=== PATIENT | female | born 1985 | race Caucasian/White ===

== ENCOUNTER 2019-06-29 13:06 | Emergency (ER) | payer OTHER ==
[~2019-06-29] VITALS: Ht 160 cm; Wt 107.2 kg
[2019-06-29 13:06] VITALS: BP 144/88
[2019-06-29] MEDS ORDERED: IBUP-1022 PO (13:15)
[2019-06-29] MEDS ORDERED: TRAM50TA2 PO (13:39)
[2019-06-29] MEDS ORDERED: CLEO300C2 PO (13:39)
== END 2019-06-29 13:52 | disposition home or self-care (01) ==
LOC: M ED 13:06
DX: K08.89 Other specified disorders of teeth and supporting structures (principal); R13.10 Dysphagia, unspecified; Z88.0 Allergy status to penicillin; Z88.8 Allergy status to other drugs, medicaments and biological substances; Z91.048 Other nonmedicinal substance allergy status; F17.210 Nicotine dependence, cigarettes, uncomplicated

== ENCOUNTER 2019-07-28 18:06 | Emergency (ER) | payer OTHER ==
[~2019-07-28] VITALS: Ht 160 cm; Wt 109.7 kg
[~2019-07-28 18:06] MED LIST: CLEO300C2 PO; IBUP-1022 PO; TRAM50TA2 PO
[2019-07-28 19:51] VITALS: BP 147/93
[2019-07-28] MEDS ORDERED: CLEO300C2 PO (19:52)
[2019-07-28] MEDS ORDERED: NORC1TAB7 PO (19:52)
[2019-07-28] MEDS ORDERED: NORCO, ANEXSIA 5/325MG TABLET (HYDROcodone/ACETAMINOPHEN) PO ONE (20:00)
[2019-07-28] MEDS ORDERED: CLINDAMYCIN 150 MG CAP PO ONE (20:00)
== END 2019-07-28 19:58 | disposition home or self-care (01) ==
LOC: M ED 18:06
DX: L02.214 Cutaneous abscess of groin (principal); F17.200 Nicotine dependence, unspecified, uncomplicated; Z88.0 Allergy status to penicillin; Z88.8 Allergy status to other drugs, medicaments and biological substances; Z91.048 Other nonmedicinal substance allergy status

== ENCOUNTER → 2019-10-22 | Outpatient (REF) ==
[~2019-10-22] MED LIST changes: +NORC1TAB7 PO
== END ==
LOC: M LAB 08:24